=== PATIENT | female | born 1960 | race Caucasian/White ===

== ENCOUNTER 2018-12-10 10:57 | Emergency (ER) | payer BC ==
--- NOTE | 2018-12-10 11:35 | ERPHSYRPT ---
- History of Present Illness Time Seen by Provider: 12/10/18 11:23 Source: patient Exam Limitations: no limitations Patient Subjective Stated Complaint: palpatations with shortness of breath Triage Nursing Assessment: Pt reports that 2 nights ago when leaving work she started having pain in the left chest, she thought she just pulled something, when she woke up yesterday she had N&V along with the pain, crackers and jello yesterday that did not stay down, c/o of chest pain, shortness of breath, and palpatations today, BP 182/118, S1-S2 heard, afebrile, denies vomiting today, sees Dr. Galan for her blood pressure Physician History: 58-year-old white female sent from [facility] [place], Patient states that she was having shortness of breath, pain in the right side of her chest described as sharp, nausea and vomiting symptoms began 2 days ago she also had palpitations she states that the chest pain nausea and vomiting and palpitations resolved yesterday however today she feels short of breath and weak. She denies any fevers Past medical history includes migraines, arthritis, menstrual problems. Past surgical history includes cholecystectomy, orthopedic surgery, hysterectomy , left knee surgery, L4-L5 surgery, cholecystectomy Social history patient denies tobacco alcohol or illicit drug use Timing/Duration: day(s) (2 DAYS AGO) Severity: moderate Modifying Factors: Improves With: nothing Associated Symptoms: nausea, vomiting, shortness of breath, chest pain (RIGHT- SIDED CHEST PAIN), other (PALPITATIONS), No abdominal pain, No heartburn, No diaphoresis, No cough, No chills, No headaches, No loss of appetite, No malaise , No rash, No syncope, No seizure, No weakness Allergies/Adverse Reactions: No Known Drug Allergies Allergy (Verified 12/10/18 11:19) Home Medications: Amlodipine Besylate 5 mg [Norvasc 5 mg] 5 mg PO DAILY 12/10/18 [History] Carvedilol [Coreg] 25 mg PO BID 12/10/18 [History] Hx Tetanus, Diphtheria Vaccination/Date Given: No Hx Influenza Vaccination/Date Given: No Hx Pneumococcal Vaccination/Date Given: No - Review of Systems Constitutional: Weakness, No Fever, No Chills Eyes: No Symptoms Ears, Nose, & Throat: No Symptoms Respiratory: Dyspnea, No Cough, No Cyanosis, No Dyspnea on Exertion (DUBOSE), No Stridor, No Wheezing Cardiac: Chest Pain (RIGHT SIDED CHEST PAIN RESOLVED YESTERDAY), Palpitations, No Edema, No Syncope, No Orthopnea, No PND Abdominal/Gastrointestinal: Nausea, Vomiting, No Abdominal Pain, No Diarrhea, No Constipation, No Hematemesis, No Hematochezia, No Melena, No Dysphagia Genitourinary Symptoms: No Dysuria Musculoskeletal: No Back Pain, No Neck Pain Skin: No Rash Neurological: No Dizziness, No Focal Weakness, No Sensory Changes Psychological: No Symptoms Endocrine: No Symptoms All Other Systems: Reviewed and Negative - Past Medical History Pertinent Past Medical History: Yes Neurological History: Migraines ENT History: No Pertinent History Cardiac History: No Pertinent History, Hypertension Respiratory History: No Pertinent History Endocrine Medical History: No Pertinent History Musculoskeletal History: Arthritis GI Medical History: No Pertinent History History: No Pertinent History Psycho-Social History: No Pertinent History Female Reproductive Disorders: Menstrual Problems - Past Surgical History Past Surgical History: Yes Gastrointestinal: Cholecystectomy Musculoskeletal: Orthopedic Surgery Female Surgical History: Hysterectomy Other Surgical History: l4-l5, right knee scraping - Social History Smoking Status: Never smoker Exposure to second hand smoke: Yes Drug Use: none Patient Lives Alone: No - Female History Hx Now: No (hysterectomy) - Nursing Vital Signs Nursing Vital Signs: Initial Vital Signs Temperature 97.4 F 12/10/18 10:59 Pulse Rate 102 H 12/10/18 10:59 Respiratory Rate 24 12/10/18 10:59 Blood Pressure 182/118 12/10/18 10:59 O2 Sat by Pulse Oximetry 94 L 12/10/18 10:59 Pain Scale Pain Intensity 7 - Physical Exam General Appearance: no apparent distress, alert Eye Exam: PERRL/EOMI, eyes nml inspection Ears, Nose, Throat Exam: normal ENT inspection, TMs normal, pharynx normal, moist mucous membranes Neck Exam: normal inspection, non-tender, supple, full range of motion Respiratory Exam: normal breath sounds, lungs clear, No respiratory distress Cardiovascular Exam: regular rate/rhythm, normal heart sounds, normal peripheral pulses, capillary refill <2 sec Gastrointestinal/Abdomen Exam: soft, normal bowel sounds, No tenderness, No mass Back Exam: normal inspection, normal range of motion, No CVA tenderness, No vertebral tenderness Extremity Exam: normal inspection, normal range of motion, pelvis stable Neurologic Exam: alert, oriented x 3, cooperative, manager group II-XII nml as tested, normal mood/affect, nml cerebellar function, nml station & gait, sensation nml, No motor deficits Skin Exam: normal color, warm, dry, No rash Lymphatic Exam: No adenopathy SpO2 Interpretation: normal (98%) SpO2: 98 - Course Nursing assessment & vital signs reviewed: Yes EKG Interpreted by Me: RATE (99 BPM), Sinus Rhythm, NORMAL AXIS, Other (EKG: Sinus rhythm, 99 bpm, normal axis, no acute ST or T wave changes, no old EKG for comparison) - Radiology Exams Chest X-ray Interpretation: Discussed w/ radiologist (chest x-ray: Nonacute chest with chronic features) Ordered Tests: Active Orders 24 hr Category Date Time Status Lumber Scaler STAT Care 12/10/18 11:29 Active EKG-ER Only STAT Care 12/10/18 11:29 Active IV Insertion STAT Care 12/10/18 11:29 Active Pulse Oximetry (ED) STAT Care 12/10/18 11:29 Active CHEST 1 VIEW (PORTABLE) Stat Exams 12/10/18 11:29 Completed CBC W DIFF Stat Lab 12/10/18 11:29 Completed CMP Stat Lab 12/10/18 11:40 Completed D-DIMER QUANTITATION Stat Lab 12/10/18 11:40 Completed PROTIME WITH INR Stat Lab 12/10/18 11:40 Completed PTT Stat Lab 12/10/18 11:40 Completed TROPONIN Q3H Lab 12/10/18 11:40 Completed TROPONIN Q3H Lab 12/10/18 14:40 Completed TROPONIN Q3H Lab 12/10/18 17:30 Ordered TROPONIN Q3H Lab 12/10/18 20:30 Ordered TROPONIN Q3H Lab 12/10/18 23:30 Ordered Medication Summary Generic Name Dose Route Start Last Admin Trade Name Freq PRN Reason Stop Dose Admin Sodium Chloride 1,000 mls @ 200 mls/hr 12/10/18 13:00 12/10/18 13:02 Sodium Chloride 0.9% 1000 Ml IV 01/09/19 12:59 200 mls/hr .Q5H ETHEL Administration Discontinued Medications Generic Name Dose Route Start Last Admin Trade Name Freq PRN Reason Stop Dose Admin Potassium Chloride 20 meq 12/10/18 16:18 Klor Con 10 Meq PO 12/10/18 16:19 STAT ONE Lab/Rad Data: Laboratory Result Diagrams 12/10/18 11:29 12/10/18 11:40 Laboratory Results 12/10/18 12/10/18 12/10/18 Range/Units 14:40 11:45 11:40 WBC (4.0-10.5) K/mm3 RBC (4.1-5.4) M/mm3 Hgb (12.0-16.0) gm/dl Hct (35-47) % MCV (78-100) fl MCH (26-32) pg MCHC (32-36) g/dl RDW (11.5-14.0) % Plt Count (150-450) K/mm3 MPV (6-9.5) fl Gran % (36.0-66.0) % Eos # (Auto) (0-0.5) Absolute Lymphs (auto) (1.0-4.6) Absolute Monos (auto) (0.0-1.3) Lymphocytes % (24.0-44.0) % Monocytes % (0.0-12.0) % Eosinophils % (0.00-5.0) % Basophils % (0.0-0.4) % Absolute Granulocytes (1.4-6.9) Basophils # (0-0.4) PT (9.95-12.35) SECONDS INR (0.8-3.0) APTT (25.3-37.0) SECONDS D-Dimer (215-500) ng/mL Sodium (137-145) mmol/L Potassium (3.5-5.1) mmol/L Chloride (98-107) mmol/L Carbon Dioxide (22-30) mmol/L Anion Gap (5-15) MEQ/L BUN (7-17) mg/dL Creatinine (0.52-1.04) mg/dL Estimated GFR ML/MIN Glucose (74-106) mg/dL Calcium (8.4-10.2) mg/dL Total Bilirubin (0.2-1.3) mg/dL AST (14-36) U/L ALT (0-35) U/L Alkaline Phosphatase (38-126) U/L Troponin I < 0.012 0.012 (0.000-0.034) ng/mL Serum Total Protein (6.3-8.2) g/dL Albumin (3.5-5.0) g/dL Influenza Type A Ag NEGATIVE (NEGATIVE) Influenza Type B Ag NEGATIVE (NEGATIVE) RSV (PCR) NEGATIVE (Negative) 12/10/18 12/10/18 12/10/18 Range/Units 11:40 11:40 11:29 WBC 10.0 (4.0-10.5) K/mm3 RBC 5.88 H (4.1-5.4) M/mm3 Hgb 17.5 H (12.0-16.0) gm/dl Hct 51.8 H (35-47) % MCV 88.1 (78-100) fl MCH 29.7 (26-32) pg MCHC 33.8 (32-36) g/dl RDW 14.0 (11.5-14.0) % Plt Count 265 (150-450) K/mm3 MPV 11.1 H (6-9.5) fl Gran % 71.8 H (36.0-66.0) % Eos # (Auto) 0.07 (0-0.5) Absolute Lymphs (auto) 2.06 (1.0-4.6) Absolute Monos (auto) 0.68 (0.0-1.3) Lymphocytes % 20.6 L (24.0-44.0) % Monocytes % 6.8 (0.0-12.0) % Eosinophils % 0.7 (0.00-5.0) % Basophils % 0.1 (0.0-0.4) % Absolute Granulocytes 7.20 H (1.4-6.9) Basophils # 0.01 (0-0.4) PT 12.0 (9.95-12.35) SECONDS INR 1.03 (0.8-3.0) APTT 28.0 (25.3-37.0) SECONDS D-Dimer 315 (215-500) ng/mL Sodium 141 (137-145) mmol/L Potassium 3.2 L (3.5-5.1) mmol/L Chloride 106 (98-107) mmol/L Carbon Dioxide 25 (22-30) mmol/L Anion Gap 13.9 (5-15) MEQ/L BUN 17 (7-17) mg/dL Creatinine 0.80 (0.52-1.04) mg/dL Estimated GFR > 60.0 ML/MIN Glucose 114 H (74-106) mg/dL Calcium 9.7 (8.4-10.2) mg/dL Total Bilirubin 1.10 (0.2-1.3) mg/dL AST 36 (14-36) U/L ALT 31 (0-35) U/L Alkaline Phosphatase 104 (38-126) U/L Troponin I (0.000-0.034) ng/mL Serum Total Protein 8.0 (6.3-8.2) g/dL Albumin 4.3 (3.5-5.0) g/dL Influenza Type A Ag (NEGATIVE) Influenza Type B Ag (NEGATIVE) RSV (PCR) (Negative) - Progress Progress: improved Progress Note: 12/10/18 12:58 Patient's in no acute distress at this time. EKG no acute changes chest x-ray no acute changes CBC shows an elevated hemoglobin 17.5 hematocrit of 51.8 white count 10. Chemistry essentially normal troponin within normal limits d-dimer is normal influenza is negative Will go ahead and give patient normal saline at 200 mL per hour and recheck troponin 3 hours after last draw. Patient's blood pressure is markedly improved from arrival. 12/10/18 15:40 Patient feeling better after IV normal saline. Patient with normal troponin for the second time other labs remarkable only for hemoglobin and hematocrit of 17.5 and 51.8. Patient with no further vomiting in the emergency room chest pain resolved yesterday. Patient has been stable on the monitor. Will go ahead and have nurse run in the rest of her 1 L of normal saline and discharge. - Departure Time of Disposition: 16:22 Departure Disposition: Home Clinical Impression: Non-cardiac chest pain, Palpitations Nausea and vomiting Qualifiers: Vomiting type: unspecified Vomiting Intractability: non-intractable Qualified Code(s): R11.2 - Nausea with vomiting, unspecified Condition: Fair Critical Care Time: No Referrals: LESLEY GALAN [ACTIVE STAFF] - Additional Instructions: Return home rest plenty of fluids. Follow-up with your family doctor. Return for acute distress or for severe symptoms.
[2018-12-10 12:01] LABS: BASOPHIL % 0.1 % (0.0-0.4); Basophil (Absolute #) 0.01 (0-0.4); Eosinophil % 0.7 % (0.00-5.0); Eosinophil (Absolute #) 0.07 (0-0.5); Granulocytes % 71.8 % (36.0-66.0); Hematocrit 51.8 % (35-47); Hemoglobin 17.5 gm/dl (12.0-16.0); Lymphocyte (Absolute #) 2.06 (1.0-4.6); Lymphocytes % 20.6 % (24.0-44.0); Mean Cell Volume 88.1 fl (78-100); Mean Corpuscular Hgb Concent. 33.8 g/dl (32-36); Mean Platelet Volume 11.1 fl (6-9.5); Monocyte (Absolute #) 0.68 (0.0-1.3); Monocytes % 6.8 % (0.0-12.0); Platelet Count 265 K/mm3 (150-450); Red Blood Count 5.88 M/mm3 (4.1-5.4)
--- NOTE | 2018-12-10 12:04 | XRAY ---
Indication: Short of breath, weakness, and chest tightness. Comparison: None Portable chest demonstrates lingular discoid atelectasis/scarring and a few scattered calcified granulomas. No focal infiltrate, consolidation, or large effusion. Heart is not enlarged. Bony thorax intact with mild degenerative changes. Impression: Nonacute chest with chronic features.
[2018-12-10 12:06] LABS: Mean Corpuscular Hemoglobin 29.7 pg (26-32)
[2018-12-10 12:24] LABS: INR 1.03 (0.8-3.0)
[2018-12-10 12:28] LABS: ALBUMIN 4.3 g/dL (3.5-5.0); ALKALINE PHOSPHATASE 104 U/L (38-126); ANION GAP 13.9 MEQ/L (5-15); BLOOD UREA NITROGEN 17 mg/dL (7-17); CHLORIDE 106 mmol/L (98-107); Calcium 9.7 mg/dL (8.4-10.2); Carbon Dioxide 25 mmol/L (22-30); Glucose 114 mg/dL (74-106); Potassium 3.2 mmol/L (3.5-5.1); SGOT/AST 36 U/L (14-36); SGPT/ALT 31 U/L (0-35); SODIUM 141 mmol/L (137-145)
[2018-12-10 12:41] LABS: INFLUENZA A NEGATIVE (NEGATIVE); INFLUENZA B NEGATIVE (NEGATIVE); RESPIRATORY SYNCTIAL VIRUS NEGATIVE (Negative)
[2018-12-10] MEDS ORDERED: Sodium Chloride 0.9% 1000 ML 1,000 ML ONE (12:59)
[2018-12-10] MEDS ORDERED: Sodium Chloride 0.9% 1000 ML 1,000 ML IV SCH (13:00)
[2018-12-10] MEDS ORDERED: Klor Con 10 MEQ PO ONE ×2 (16:18→16:21)
[2018-12-10 16:27] VITALS: BP 167/98; PULSE 84; O2SAT 94
== END 2018-12-10 16:33 | disposition home or self-care (01) ==
LOC: ED 10:57
DX: R07.89 Other chest pain (principal); R00.2 Palpitations; R11.2 Nausea with vomiting, unspecified; I10 Essential (primary) hypertension
CPT/HCPCS: 36000; 36415; 71045; 80053; 84484; 85025; 85379; 85610; 85730; 87631; 93005; 93041; 96360; 96361; 99284; A9270-GY